=== PATIENT | female | born 1965 | race Two or more races ===

== ENCOUNTER 2017-12-05 12:29 | Outpatient (CLI) | payer MEDICAID ==
[~2017-12-05] VITALS: Ht 154.9 cm; Wt 74.8 kg
[2017-12-06] MEDS ORDERED: UNOBMED (09:30)
--- NOTE | 2017-12-06 09:34 | GI Initial Consult Note ---
History of Present Illness General Date patient seen: Dec 05, 2017 Time patient seen: 09:25 Referring physician: HMO Reason for Consultation: ABDOMINAL PAIN Present Illness HPI 52 year old female patient with history cancer, HTN and blood transfusions presents today with complaint of abdominal pain. She states she has stomach pain and has issues eating and digesting food which causes her to have the feeling to vomit. Patient is currently on chemotherapy for a ?kidney tumor and has chronic pain. Today, has complaint of severe epigastric pain and nausea. No history of endoscopy / colonoscopy. Denies any unintentional weight loss or changes in dietary habits. No signs of abuse or neglect. Patient is not fall risk. Home Meds Reported Medications Unable to Obtain Medications (UNABLE TO OBTAIN MEDS) 1 Ea Ea 12/06/17 Med list reviewed/reconciled: Yes Allergies: Coded Allergies: No Known Allergies (Unverified , 12/05/17) Patient History History Provided By: Patient PMH Narrative See HPI Past Surgical History: Cholecystectomy Family History Narrative Daughter had passed from cancer. Social History: Reports: smoking - 1 per day, other - cofffee daily Review of Systems All Other Systems: negative except mentioned in HPI Physical Exam Vital Signs Date Time Temp Pulse Resp B/P (MAP) Pulse Ox O2 Delivery O2 Flow Rate FiO2 12/05/17 13:50 97.4 74 99 97.4 Sp02 EP Interpretation: reviewed, normal General Appearance: well appearing, no apparent distress, alert Head: normocephalic EENT: PERRL/EOMI, normal ENT inspection Neck: supple Respiratory: normal breath sounds, no respiratory distress Cardiovascular: normal rate Gastrointestinal: normal inspection, non tender, soft, normal bowel sounds, non -distended Rectal: deferred Genitourinary: no CVA tenderness Musculoskeletal: normal inspection, back normal Neurologic: normal inspection, alert, oriented x3, responsive Psychiatric: normal inspection, judgement/insight normal, memory normal Skin: normal inspection, normal color, no rash, warm/dry, palpation normal, well hydrated Lymphatic: normal inspection, no adenopathy GI: Plan Problems: (1) HTN (hypertension) (2) Cancer (3) Colonoscopy planned (4) Nausea Plan EGD/colonoscopy to be scheduled pending PA, will contact patient. - CLD & (Nulytely/Suprep/Movi-Prep) prep instructions given and acknowledged by patient. - NPO @ AR day prior procedure explained. Seen with Dr. Corbin. Thank you for this patient referral. The patient was seen and examined at bedside and all new and available data was reviewed in the patients chart. I agree with the above findings, impression and plan. (Patient seen earlier today. Signature stamp does not reflect patient encounter time.). - MD Maryan Banuelos,[facility] ALMOND SORTER Dec 06, 2017 09:34
== END 2017-12-05 12:59 | disposition home or self-care (01) ==
LOC: PAN 12:29
DX: R10.13 Epigastric pain (principal); R11.0 Nausea; C80.1 Malignant (primary) neoplasm, unspecified; Z79.899 Other long term (current) drug therapy; I10 Essential (primary) hypertension; G89.29 Other chronic pain
CPT/HCPCS: 99202